=== PATIENT | male | born 1960 | race Caucasian/White ===

== ENCOUNTER → 2016-07-17 | Outpatient (CLI) | payer BC ==
[~2016-07-17] MED LIST: ASPIRIN LO-DOSE81 MG PO; BRILINTA90 MG PO; COREG25 MG PO; COZAAR100 MG PO; IBUPROFEN200 MG PO; INSPRA25 MG PO; LIPITOR80 MG PO; MEN 50 PLUS MU1 EACH PO; NITROSTAT0.4 MG SL
== END | disposition disaster alternative care site (69) ==
LOC: LNHI 09:01
DX: I25.10 Atherosclerotic heart disease of native coronary artery without angina pectoris (principal); E78.2 Mixed hyperlipidemia; I10 Essential (primary) hypertension

== ENCOUNTER → 2016-09-17 | Outpatient (CLI) | payer BC ==
[2016-09-17 16:55] LABS: CPK 174 IU/L (35-332)
== END | disposition disaster alternative care site (69) ==
LOC: LNHI 16:25
PROVIDERS: Internal Medicine Cardiovascular Disease
DX: I25.10 Atherosclerotic heart disease of native coronary artery without angina pectoris (principal); E78.2 Mixed hyperlipidemia; I10 Essential (primary) hypertension

== ENCOUNTER → 2016-09-22 | Outpatient (CLI) | payer BC ==
--- NOTE | ~2016-09-22 | ESTC ---
Cardiac Perfusion Imaging Demographics Patient Name BRUNO Pearce Gender Male Patient Number [id number] Race Visit Number [id number] [place] [id number] Room Number Accession Number [id number] Height Date of 1960 Weight Age 55 year(s) BSA Referring Physician Tj Badillo MD BMI Interpreting Hu Beard Date of study 09/22/2016 Physician Supervising /CATHERINEP Moncho VELASQUEZ Technologist Eloy Verma MD Ordering Physician Moncho Cross A electrical instrument technician Stress ECG Reading Moncho Hope Nurse Dorota Uribe Physician A RN Mayra Griggs RN Procedure Procedure Type: Nuclear Stress Test:Pharmacological, Lexiscan, Cardiolite Stress Test Procedure Start time: 09/22/2016 09:45 Indications: Chest discomfort. Risk Factors The patient risk factors include:prior PCI on 01/15/2016;Current/Recent(w/in 1 year) tobacco use, treated hypercholesterolemia, treated hypertension, prior CT and ( years not smokin). Conclusions Summary Perfusion Images: The overall quality of the study is fair, due to soft tissue attenuation. Left ventricular cavity is noted to be normal on the stress and rest studies. There is no evidence of abnormal lung activity. The right ventricle is not visualized and cannot be assessed. Stress SPECT images and Rest SPECT images demonstrate homogenous tracer distribution throughout the myocardium except for a decrease uptake in the area involving the inferior wall consistent with soft tissue attenuation. Gated SPECT imaging reveals normal myocardial thickening and wall motion. The left ventricular ejection fraction was calculated to be 53%. Impression ECG portion of stress test is clinically negative for ischemia by diagnostic criteria. Myocardial perfusion imaging is mildly abnormal. The inferior wall mostly matched defect is consistent with soft tissue attenuation. Overall left ventricular systolic function was normal without regional wall motion abnormalities. Stress Protocols Resting ECG Normal sinus rhythm. Pre-stress physical exam: Patient assessed by Dr Ivan prior to testing. Stress Protocol:Pharmacologic Predicted HR: 166 bpm ECG Findings No ECG changes suggestive of ischemia. Arrhythmias No rhythm abnormality. Symptoms Shortness of breath. Stress Interpretation Appropriate hemodynamic response to Lexiscan. No significant ST-T wave changes with Lexiscan. ECG portion is negative for ischemia by diagnostic criteria. Imaging Results Summed scores - Summed stress score: 2 - Summed rest score: 7 - Summed difference score: -5 Stress ejection Ejection fraction:53 % EDV :121 ml ESV :57 ml Stroke volume :64 ml LV mass :160 gr Imaging Protocols Rest Stress Isotope:Tc99m Sestamibi IV Isotope: Tc99m Sestamibi IV Isotope dose:8.9 mCi Isotope dose:26.8 mCi Date:09/22/2016 07:55 Date:09/22/2016 10:33 Technique: SPECT Technique: Gated Supine SPECT Supine Scan Time:45-60 minutes post Scan Time:45-60 minutes post injection injection Procedure Medications - Regadenoson (Lexiscan) 0.4 mg IV over 10-15 sec. I.V. 0.4 mg. Medical History Admission Data Admission date: 09/22/2016 Admission Time: 07:18 Hospital Status: Outpatient. Signatures dtt: EVERT AMEZCUA dtd: 09/22/16 0945 Physician Self Edit
== END | disposition disaster alternative care site (69) ==
LOC: GRAD 07:18
DX: I25.10 Atherosclerotic heart disease of native coronary artery without angina pectoris (principal); E78.00 Pure hypercholesterolemia, unspecified; I10 Essential (primary) hypertension; I25.2 Old myocardial infarction; F17.210 Nicotine dependence, cigarettes, uncomplicated; R07.89 Other chest pain; Z98.61 Coronary angioplasty status
CPT/HCPCS: A9500; J2785